=== PATIENT | male | born 1990 | race Caucasian/White ===

== ENCOUNTER → 2018-02-04 16:48 | Outpatient (CLI) | payer OTHER, SELFPAY ==
--- NOTE | 2018-02-04 16:53 | CT_ITS ---
STUDY: CT SOFT TISSUE NECK WITH CONTRAST REASON FOR EXAM: Male, 27 years old. Mass in the left side of the neck. RADIATION DOSAGE (If Supplied By Facility): CTDIvol = ( 20.98 ) mGy, DLP = ( 633.99 ) mGycm TECHNIQUE: The patient was scanned in a multi-detector CT scanner. High resolution transaxial imaging was performed following intravenous administration of 100ML ml of Isovue 300 contrast material. Sagittal and coronal images were reconstructed. Individualized dose optimization techniques were used for this CT. COMPARISON: None. FINDINGS: The left parotid gland is slightly more prominent than the right side but no focal mass is definitely identified. Normal bilateral stranding supervisor spaces. Normal bilateral parapharyngeal spaces. Normal bilateral carotid spaces. Normal bilateral sublingual and submandibular glands and spaces. There is mild asymmetric prominence of the posterior nasopharynx. Normal retropharyngeal space. Normal perivertebral space. Normal visualized bilateral faucial tonsils. The visualized tongue, tongue base and oropharynx are normal. The visualized cervical lymph nodes (levels I-) are within normal size limits, and maintain normal morphology. There is no demonstrated solid or cystic mass lesion. There is no abnormal contrast enhancement. The epiglottis is suboptimally seen but appears to be within normal limits. The pre-epiglottic and paraglottic adipose spaces are normal. Normal visualized bilateral piriform sinuses, aryepiglottic folds, vocal cords, and arytenoid-cricoid articulations. Normal subglottic trachea. Normal bilateral lobes of the thyroid gland. Normal visualized pulmonary apices. The sinuses demonstrate well-defined soft tissue densities in the maxillary sinuses bilaterally larger on the left side likely representing a retention cyst. There is mild mucosal thickening of the left maxillary sinus. No air-fluid levels are seen. Normal visualized cervical spine. CT/Soft Tissue Neck WITH Contrast IMPRESSION: Mild prominence of the posterior nasopharynx. Correlation with direct visualization is recommended. Slightly more prominent left parotid gland compared to the right side without focal mass. Retention cysts in both maxillary sinuses. Electronically Signed: Hamilton Lopez MD at 15:50 EDT Tel , Service support ,
--- NOTE | 2018-02-21 | ASPOS_PTH ---
PATIENT: LIN MARCUS LOC: [place] U#:[id number] AGE/SX: 34/M ROOM: RE02/04/[address]: Dr. Lai Arthur MD : 1990 BED: DIS: SPEC #: [id number] RECD: 02/21/18 14:21 STATUS: MALINDA JAIME #: [id number] JENNA: 02/21/18 00:[address]: Lai Arthur DEPT: CYTOLOGY RECD BY: Franco Liu ENTERED: 02/21/18 14:22 SP TYPE: ASP HERE OTHR DR: Dr. Agusto Plummer MD Tissues: Parotid gland, NOS Procedures: Pap Stain (control) Special Stain Group II Surgery Specimen Level IV Diff Quik Stain (control) Cell Block Cytology Other Fine Needle Asp on Site HEADER OPERATION: FNA left parotid mass PRE-OP DIAGNOSIS: Left parotid mass TISSUE SUBMITTED: Left parotid FNA DIAGNOSIS CYTOLOGY Left parotid mass, FNA (smear and cell block): Consistent with pleomorphic adenoma. JACKIE:cruz 02/22/18 COMMENT The specimen is evaluated at the time of FNA by Dr. Morfin. Immediate Evaluation = Pleomorphic adenoma. Correlation with clinical findings and appropriate followup are necessary. CYTOLOGY STUDY Slides are reviewed. CYTOLOGY GROSS Received is 0.5 ml of reddish fluid labeled with the patient's name, and designated Left parotid mass. 6 imprints and 4 paps are made from the submitted fluid and the rest is added to CytoLyt for cell block preparation. Submitted for cytology study. Shahram 02/21/18 TC:1 CPT: 38159, 87628, 06946, 13704
== END ==
PROVIDERS: Family Provider Family Medicine; PCP Family Medicine; Referring Provider Otolaryngology; Visit Provider Otolaryngology
DX: K11.8 Other diseases of salivary glands (principal)
CPT/HCPCS: 10021; 70491; 88161; 88305; 88313; Q9967

== ENCOUNTER 2019-05-01 06:03 | Day surgery (SDC) | payer OTHER, SELFPAY ==
[2019-04-26 17:23] LABS: Hematocrit 47.6 % (40-54); Hemoglobin 15.3 g/dL (13.0-16.5); Mean Corp Hgb Conc 32.1 g/dL (32-36); Mean Corpuscular Hgb 27.7 pg (27.0-32.0); Mean Corpuscular Volume 86.1 fL (80-94); Mean Platelet Vol. 10.8 fl (6.2-12.0); Platelet Count 249 K/mm3 (150-450); RBC Distribution Width CV 13.2 % (11.6-14.6); RBC Distribution Width SD 41.2 fl (35.1-43.9); Red Blood Count 5.53 M/mm3 (4.6-6.2); White Blood Count 8.4 K/mm3 (4.4-11.0)
[2019-05-01] VITALS (7 sets, daily range): BP systolic 116–138; BP diastolic 64–83; PULSE 64–101; RESP 16–20; TEMP 36.6–36.7; O2SAT 20–100; BMI 31.8
--- NOTE | 2019-05-01 | PAR_PTH ---
PATIENT: LIN MARCUS LOC: [facility] [place] U#:[id number] AGE/SX: 28/M ROOM: RE05/01/[address]: Dr. Lai Arthur MD : 1990 BED: DIS: 05/01/2019 SPEC #: [id number] RECD: 05/01/19 13:23 STATUS: MALINDA JAIME #: [id number] JENNA: 05/01/19 00:[address]: Lai Arthur DEPT: SURGICAL PATHOLOGY RECD BY: Franco Liu ENTERED: 05/01/19 13:23 SP TYPE: PAROTID OTHR DR: MD Dr. Agusto Nicholson MD Tissues: Parotid gland, NOS Procedures: Surgery Specimen Level V HEADER OPERATION: Parotidectomy PRE-OP DIAGNOSIS: Left parotid neoplasm TISSUE SUBMITTED: Parotid gland MICROSCOPIC DIAGNOSIS Left parotid neoplasm, parotidectomy: Pleomorphic adenoma. Salivary gland tissue with mild chronic inflammation. Two out of two lymph nodes with no pathologic change. See comment. AM:nell 05/02/19 COMMENT The pleomorphic adenoma appears to have been incompletely excised in the planes examined. Reference is made to the patient's fine needle aspiration of left parotid mass from 2018 ([id number]) in which changes consistent with pleomorphic adenoma were identified. Case has been reviewed in consultation with Dr. Stoddard who concurs with the above diagnosis. IDC:JACKIE MICROSCOPIC DESCRIPTION Slides are reviewed. GROSS DESCRIPTION Received in fixative is one container labeled with the patient's name and designated parotid gland. The specimen consists of a piece of irregular britton tissue weighing 17.8 gm and measuring 4.5 x 5 x 3 cm. Sections reveal a britton-white solid tumor measuring 2 x 2 x 1.5 cm. Client Reporting Associate sections are submitted in eight cassettes. Cassettes 2-6 contain the entire tumor. / JACKIE:nell 05/01/19 TC:1 CPT: 70006
[2019-05-01] MEDS: Lactated Ringers 1,000 ML 100 ML IV ×2 (06:34→10:00)
--- NOTE | 2019-05-01 07:29 | DCINST_ITS ---
You will use the following diet at home:: Regular Discharge Activity: Return to Normal Activity Additional Activity Instructions:: Empty and record drain output every 12 hours. Make sure drain is compressed. May get the face wet after drain has been removed. Allergies/Adverse Reactions: Allergies No Known Allergies Allergy (Verified 05/01/19 06:14) Medications to take at Discharge NK 04/25/19 Primary Care Physician: Agusto Plummer MD [Primary Care Provider] - Test Results: Test results from this visit will be discussed in further detail at your follow- up appointment, if applicable.
[2019-05-01] MEDS: Bacitracin 500 UNITS/GM PACKET (07:45)
[2019-05-01] MEDS: Mupirocin Ointment 22gm Tube 1 APPLIC (11:26)
--- NOTE | 2019-05-01 11:49 | PCM.OPRPT ---
Problem List (1) H/O superficial parotidectomy Status: Acute (2) Open wound of face Status: Acute Report of Operation Date of Procedure: 05/01/19 Pre-Operative Diagnosis: 1. post parotidectomy defect, left Post-Operative Diagnosis: 1. post parotidectomy defect, left Surgery/Procedure Performed:: 1. superficial musculoaponeurotic system flap, left. 2. abdominal fat graft Type of Anesthesia:: General Description of Procedure: on the day of the procedure, after appropriate informed consent was obtained, the patient was brought to the operating room and placed in supine position on the operating table. he was placed under general endotracheal anesthesia. the endotracheal tube was secured, tegaderm was placed over the eyes. facial nerve monitoring electrodes were placed over the left face. the left preauricular area was injected with lidocaine/epinephrine the face and left lower quadrant were prepped and draped in sterile fashion. a modified duncan incision was made on the left. the preauricular fat was dissected anteriorly and the subcutaneous flap was opened, 4 x 4 cm. this traversed into the neck. a 15 blade was used anterior to the tragus and the parotid-masseteric fascia was encountered. the superficial musculoaponeurotic system flap was taken anteriorly 4 cm, then taken into the neck as it fuses with the platysma. the entire flap was rotated anteriorly. at this time, a left superficial parotidectomy was performed by dorina martinez. please see his report for details. the left lower quadrant was injected with lidocaine/epinephrine. a 4 cm incision was made transversely with a 15 blade. the subcutaneous fat was encountered and dissected with a metzenbaum scizzor. the graft was circumferentially removed and measured 8 x 5 cm. hemostasis was achieved with a bipolar. scarpas fascia was not encountered. a papa was placed and the incision was closed with 4-0 vicryl and 4-0 monocryl. the graft was placed into the 8 x 5 cm defect of the left face and neck. this was sutured at numerous points with 4-0 vicryl to the parotid/masseteric fascia and the sternocleidomastoid. the superficial musculoaponeurotic system flap was closed over the fat graft with 4-0 vicryl. a slotted JATINDER drain was placed lateral to the SMAS flap. the skin was closed with a combination of 4-0 vicryl and 6-0 nylon. the patient was awoken from anesthesia and transferred to the PACU in stable condition. he had no gross deficits of his left facial nerve.
[2019-05-01] MEDS: HYDROcodone Bitartrate/Apap 5/325 Tablet PO (12:58)
--- NOTE | 2019-05-01 15:02 | OP.PCM_ITS ---
Report of Operation Date of Procedure: 05/01/19 Pre-Operative Diagnosis: Left parotid neoplasm Post-Operative Diagnosis: same Surgery/Procedure Performed:: Left superficial parotidectomy wih facial nerve dissection Description of Surgical Findings:: Tumor in the tail consulting services manager: None consulting services manager: Sj Del Valle Type of Anesthesia:: General Anesthesiologist: Hussein Ball Specimen's removed: left parotid Drains: 1 JATINDER Estimated Blood Loss (mL): minimal Description of Procedure: The patient was taken to the operating room on 05/01/2019. He was placed in supine position on the operating table. He was given sufficient general endotracheal anesthesia. The [facility] facial monitor was attached to the patient and it's functionality was confirmed. The left joanna-face and neck were prepped and draped sterilely. A modified Perfecto incision was made with a 15 blade. This was carried down through the skin. Hemostasis was achieved with bipolar cautery. Next the SMAS flap was dissected by Dr. Del Valle. Please see his dictation for a more detailed description of this procedure. Once the SMAS flap was elevated and rotated, left superficial parotidectomy was undertaken. The parotid was from the sternocleidomastoid muscle inferiorly. The parotid was then dissected off of the mastoid tip. The tragal pointer was identified and a trough was formed from the tragal pointer to the mastoid tip using sharp and blunt dissection. Next, careful dissection was carried out to identify the main trunk of the facial nerve. Once this was identified it was confirmed with the facial nerve monitor. The superficial lobe of the parotid was then dissected lateral to the main trunk of the facial nerve. In this way, dissection was carried out anteriorly until the pes anserinus was identified. We then dissected the inferior branch of the facial nerve. In doing so the superficial lobe of the parotid was dissected free from the facial nerve. Specifically, tissue was removed from the nerve and then bipolar cautery was carried out f ollowed by incising with scissors or a scalpel. In this way, the cervical, marginal mandibular branch and buccal branch were identified and preserved. Next, the superior division of the facial nerve was dissected using blunt dissection. Again the superficial lobe was removed using bipolar cautery and sharp incision. Frontal branch was identified. The zygomatic branch was also identified. Next the remaining tumor and gland was dissected free using sharp dissection and sent for permanent section. I then copiously irrigated the wound with saline. Hemostasis was achieved with bipolar cautery. The superior and inferior division of the facial nerve were then tested with the facial nerve monitor and there was clear movement of all parts of the face as well as tracings on the NIM monitor. At this point Dr. Del Valle performed his portion of the procedure and this is dictated in a separate operative note. Once his procedure was completed a drain was placed through a separate stab incision. This was placed lateral to the fat graft and the SMAS flap. The skin was closed with 4-0 Vicryl as well as 6-0 fast-absorbing gut. Bactroban was then applied. The patient was then awoken and brought to recovery room in stable condition blood loss minimal, replacement none. Sponge, needle, instrument count were correct at the end of the procedure.
== END 2019-05-01 14:18 | disposition home or self-care (01) ==
LOC: SDC 06:03 → AC 06:04
PROVIDERS: Otolaryngology; Family Provider Family Medicine; PCP Family Medicine; Referring Provider Otolaryngology; Visit Provider Otolaryngology
PROC: (CPT 42410; principal; 2019-05-01 07:00)
PROC: (CPT 14041; 2019-05-01 07:00)
DX: D11.0 Benign neoplasm of parotid gland (principal)
CPT/HCPCS: 14041; 15829; 42415; 36415; 85027; 88305; 88307; J7120; C1729; J2405